=== PATIENT | male | born 1995 | race Caucasian/White ===

== ENCOUNTER 2018-01-09 15:35 | Emergency (ER) | payer SELFPAY ==
[2018-01-09] MEDS: CYCLOBENZAPRINE 10 MG TABLET. PO (16:45)
[2018-01-09] MEDS: traMADol 50 MG TABLET PO (16:45)
== END 2018-01-09 17:02 | disposition home or self-care (01) ==
LOC: ER 15:35
DX: S39.012A Strain of muscle, fascia and tendon of lower back, initial encounter (principal); K21.9 Gastro-esophageal reflux disease without esophagitis; G89.29 Other chronic pain; X58.XXXA Exposure to other specified factors, initial encounter; Y93.89 Activity, other specified; Y92.89 Other specified places as the place of occurrence of the external cause; Y99.8 Other external cause status
CPT/HCPCS: 99283

== ENCOUNTER 2018-03-11 16:53 | Emergency (ER) | payer SELFPAY ==
[2018-03-11] MEDS: IBUPROFEN 800 MG TABLET. PO (17:10)
[2018-03-11] MEDS: predniSONE 10 MG TABLET PO (17:11)
[2018-03-11] MEDS: HYDROcodone/APAP 5/325MG 1 TAB TABLET PO (17:11)
== END 2018-03-11 17:15 | disposition home or self-care (01) ==
LOC: ER 17:15
DX: S39.012A Strain of muscle, fascia and tendon of lower back, initial encounter (principal); G89.29 Other chronic pain; K21.9 Gastro-esophageal reflux disease without esophagitis; X50.0XXA Overexertion from strenuous movement or load, initial encounter; Y93.89 Activity, other specified; Y92.89 Other specified places as the place of occurrence of the external cause; Y99.8 Other external cause status
CPT/HCPCS: 99284; J7512